=== PATIENT | female | born 1990 | race Caucasian/White ===

== ENCOUNTER 2016-11-07 08:57 | Emergency (ER) | payer SELFPAY ==
[~2016-11-07] VITALS: Ht 152.4 cm; Wt 85.3 kg
[2016-11-07 12:37] VITALS: BP 142/86
== END 2016-11-07 12:37 | disposition home or self-care (01) ==
LOC: ED 08:57
DX: S02.81XA Fracture of other specified skull and facial bones, right side, initial encounter for closed fracture (principal); X58.XXXA Exposure to other specified factors, initial encounter; Y93.89 Activity, other specified; Y99.8 Other external cause status; Y92.89 Other specified places as the place of occurrence of the external cause

== ENCOUNTER 2019-04-13 22:05 | Emergency (ER) | payer SELFPAY ==
[~2019-04-13] VITALS: Ht 152.4 cm; Wt 81.6 kg
[2019-04-13 22:17] VITALS: Ht 152.4 cm; Wt 81.6 kg
[2019-04-13 23:57] LABS: microscopic required? NO
[2019-04-14 00:03] LABS: urine erythrocyte NEGATIVE (NEGATIVE)
[2019-04-14 00:06] LABS: PLATELET COUNT 194 x10^3mcL (130-400); RED CELL DISTRIBUTION WIDTH 12.6 % (11.5-14.5)
[2019-04-14 00:11] LABS: AMPHETAMINE QUAL UR NONE DETECTED (See below)
[2019-04-14 00:14] LABS: CALCIUM 8.7 mg/dL (8.5-10.1); CARBON DIOXIDE 27.4 mmol/L (21-32); CHLORIDE SERUM 107 mmol/L (98-107); CREATININE SERUM 0.8 mg/dL (0.6-1.0); GFR1 > 60 mL/min; GLUCOSE SERUM 121 mg/dL (74-106); POTASSIUM SERUM 3.9 mmol/L (3.5-5.1); SODIUM SERUM 141 mmol/L (136-145)
[2019-04-14 00:26] LABS: ALBUMIN 3.6 g/dL (3.4-5.0); ALKALINE PHOSPHATASE 59 U/L (46-116); ALT/SGPT 51 U/L (14-59); AST/SGOT 27 U/L (15-37); BILIRUBIN TOTAL 0.5 mg/dL (0.20-1.00); CHOLESTEROL 149 mg/dL (<200); LIPASE 104 IU/L (73-393); MAGNESIUM 1.8 mg/dL (1.8-2.4); T4(THYROXINE) 8.3 ug/dL (4.7-13.3); TOTAL PROTEIN, SERUM 7.4 g/dL (6.4-8.2)
[2019-04-14 00:28] LABS: HDL CHOLESTEROL 27 mg/dL (40-60)
[2019-04-14 01:06] VITALS: BP 120/54
== END 2019-04-14 01:06 | disposition home or self-care (01) ==
LOC: ED 22:05
PROVIDERS: Emergency Medicine
DX: R03.0 Elevated blood-pressure reading, without diagnosis of hypertension (principal); F10.20 Alcohol dependence, uncomplicated; E66.9 Obesity, unspecified; Z68.35 Body mass index [BMI] 35.0-35.9, adult; Z90.49 Acquired absence of other specified parts of digestive tract
CPT/HCPCS: 36415; 82962; G0480